=== PATIENT | male | born 1975 | race Asian ===

== ENCOUNTER 2018-10-11 20:18 | Emergency (ER) | payer BC, OTHER ==
[2018-10-12] MEDS: KETOROLAC 30 MG INJ IV (00:35)
[2018-10-12 00:36] LABS: ADD MAN DIFF? NO
[2018-10-12 00:38] LABS: BASOPHILS % 0.3 % (0.0-2.0); EOSINOPHILS # 0.4 10^3/ul (0.0-0.5); EOSINOPHILS % 3.9 % (0.0-7.0); HEMATOCRIT 40.1 % (42.0-52.0); HEMOGLOBIN 13.1 g/dl (14.0-18.0); LYMPHOCYTES # 3.1 10^3/ul (0.8-2.9); LYMPHOCYTES % 29.7 % (15.0-51.0); MEAN CORPUSCULAR HEMOGLOBIN 32.7 pg (29.0-33.0); MEAN CORPUSCULAR HGB CONC 32.7 g/dl (32.0-37.0); MONOCYTE # 0.8 10^3/ul (0.3-0.9); MONOCYTES % 7.5 % (0.0-11.0); PLATELET COUNT 249 10^3/UL (140-415); RED BLOOD COUNT 4.01 10^6/ul (4.70-6.10); RED CELL DISTRIBUTION WIDTH 11.5 % (11.5-14.5)
[2018-10-12 00:38] LABS: WHITE BLOOD COUNT 10.3 10^3/ul (4.8-10.8)
[2018-10-12 00:56] LABS: ANION GAP 13 (5-13); BLOOD UREA NITROGEN 14 mg/dl (7-20); CALCIUM 9.9 mg/dl (8.4-10.2); CARBON DIOXIDE 23 mmol/L (21-31); CHLORIDE 104 mmol/L (97-110); CREATININE 1.22 mg/dl (0.61-1.24); Estimated GFR > 60 mL/min (>60); GLUCOSE 102 mg/dl (70-220); SODIUM 140 mmol/L (135-144); URIC ACID 7.8 mg/dl (3.1-7.9)
[2018-10-12] MEDS ORDERED: CA CHLORIDE 10% 10 ML SYRINGE IV (01:30)
[2018-10-12 01:51] LABS: ERYTHROCYTE SEDIMENTATION RATE 72 mm/Hr (0-15)
[2018-10-12] MEDS: CEFAZOLIN 1 GM/50 ML (PMX) 50 ML IVPB (02:31)
== END 2018-10-12 03:08 | disposition home or self-care (01) ==
LOC: E/R 20:18
DX: L03.116 Cellulitis of left lower limb (principal); D64.9 Anemia, unspecified
CPT/HCPCS: 73630; 73630-LT; 80048; 84560; 85025; 85651; 93971; 96374; 96375; 99285-25